=== PATIENT | male | born 2000 | race Caucasian/White ===

== ENCOUNTER 2022-02-25 18:31 | Inpatient (IN) ==
[2022-02-25] MEDS ORDERED: Lactated Ringers 1000 ml BAG 1,000 ML IV ONE ×2 (19:19→20:03)
[2022-02-25] MEDS ORDERED: Ondansetron 4 mg VIAL 2 MG/ML 2 ml VIAL IV ONE ×2 (19:25→21:09)
[2022-02-25 19:41] LABS: ABS Lymphocytes 1.3 10^3/ul (1.0-4.8); ABS Monocytes 1.1 10^3/ul (0-0.8); ABS Neutrophils 8.6 10^3/ul (1.5-7.7); Eosinophil % 0.2 %; Hematocrit 48 % (42-52); Hemoglobin 15.6 g/dL (14.0-18.0); Lymphocyte % 11.8 %; Mean Corpuscular HGB Conc 33 g/dL (31-36); Mean Corpuscular Hemoglobin 28 pg (27-31); Mean Corpuscular Volume 86 fL (80-94); Mean Platelet Volume 7.8 fL (7.4-10.4); Platelet Count 283 10^3/uL (150-450); Red Blood Count 5.55 10^6 /uL (4.18-5.48); Red Cell Distribution Width 14 % (10-15); White Blood Count 11.1 10^3/uL (3.5-10.8)
[2022-02-25] MEDS ORDERED: Pantoprazole VIAL 40 MG VIAL IV ONE (20:02)
[2022-02-25 20:19] LABS: ALT 23 U/L (7-52); Albumin/Globulin Ratio 1.8 (1-3); Alcohol, S < 13 mg/dL (<13); Alkaline Phosphatase 71 U/L (35-149); Blood Urea Nitrogen 7 mg/dL (6-24); CO2 Carbon Dioxide 19 mmol/L (22-32); Calcium 9.8 mg/dL (8.6-10.3); Chloride 101 mmol/L (101-111); Globulin 2.8 g/dL (2-4); Glucose 164 mg/dL (70-100); Salicylate < 2.50 mg/dL (<30); Sodium 139 mmol/L (135-145); Total Protein 7.8 g/dL (6.4-8.9); eGFR CKD-EPI 128.8 (>60)
[2022-02-25 20:22] LABS: Anion Gap 19 mmol/L (2-11)
[2022-02-25 20:49] LABS: Urine Appearance Clear; Urine Bilirubin Negative (Negative); Urine Blood Negative (Negative); Urine Color Yellow; Urine Glucose 1+(50 mg/dL) (Negative); Urine Ketones 1+ (Negative); Urine Nitrite Negative (Negative); Urine Protein 2+(100 mg/dL) (Negative); Urine Specific Gravity 1.019 (1.002-1.030); Urine Urobilinogen Negative (Negative)
[2022-02-25 20:57] LABS: Urine Bacteria Absent (Absent); Urine Red Blood Cell Trace(0-2/hpf) (Absent); Urine Squamous Epithelial Cell Present (Absent); Urine White Blood Cell Trace(0-5/hpf) (Absent)
[2022-02-25] MEDS ORDERED: Magnesium Sulfate 2 gm BAG 2 GM/50 ML BAG IVPB ONE (21:02)
[2022-02-25 21:03] LABS: Urine Benzodiazepine Screen None Detected (None Detect); Urine Cannabinoids Screen Presumptive Positive (None Detect); Urine Opiates Screen None Detected (None Detect)
[2022-02-25 21:06] LABS: Acetaminophen 215 mcg/mL
[2022-02-25 21:07] LABS: High Sensitivity Troponin 1 Hr 59 pg/mL (<20)
[2022-02-25 21:27] LABS: Magnesium 1.5 mg/dL (1.9-2.7); Phosphorus 2.6 mg/dL (2.5-5.0); Potassium Redraw 3.6 mmol/L (3.5-5.0)
[2022-02-25] MEDS ORDERED: D5W IV ONE ×2 (22:52→22:57)
[2022-02-25] MEDS ORDERED: ACETYLCYSTEINE IV ONE ×2 (22:52→22:57)
[2022-02-25] MEDS ORDERED: LORazepam 2 mg VIAL 1 ml IV PUSH ONE (23:29)
[2022-02-25] MEDS ORDERED: Lorazepam PYXIS KEY PRN (23:29)
[2022-02-26] MEDS ORDERED: Ondansetron 4 mg VIAL 2 MG/ML 2 ml VIAL IV ONE (00:23)
[2022-02-26] MEDS ORDERED: ACETYLCYSTEINE IV ONE ×2 (00:30→04:30)
[2022-02-26] MEDS ORDERED: D5W IV ONE ×2 (00:30→04:30)
[2022-02-26] MEDS ORDERED: LORazepam 2 mg VIAL 1 ml IV PUSH ONE (01:38)
[2022-02-26] MEDS ORDERED: Lorazepam PYXIS KEY PRN (01:38)
[2022-02-26] MEDS ORDERED: Magnesium Sulf 4 GM/100 ML IV 4,000 MG/100 ML BAG IVPB ONE (01:50)
[2022-02-26 03:29] LABS: Activated Partial Thrombo Time 28.7 seconds (26.0-38.0); INR 1.27 (0.89-1.11)
[2022-02-26 03:56] LABS: Albumin 4.8 g/dL (3.2-5.2); Albumin/Globulin Ratio 1.8 (1-3); Calcium 9.7 mg/dL (8.6-10.3); Globulin 2.7 g/dL (2-4); Magnesium 2.1 mg/dL (1.9-2.7); Potassium 3.8 mmol/L (3.5-5.0); Total Bilirubin 1.6 mg/dL (0.2-1.0); Total Protein 7.5 g/dL (6.4-8.9); eGFR CKD-EPI 129.8 (>60)
[2022-02-26 05:40] LABS: ABS Lymphocytes 0.9 10^3/ul (1.0-4.8); ABS Neutrophils 13.6 10^3/ul (1.5-7.7); Hematocrit 43 % (42-52); Hemoglobin 14.1 g/dL (14.0-18.0); Lymphocyte % 6.1 %; Mean Corpuscular HGB Conc 33 g/dL (31-36); Mean Corpuscular Hemoglobin 28 pg (27-31); Mean Corpuscular Volume 85 fL (80-94); Mean Platelet Volume 7.7 fL (7.4-10.4); Nucleated Red Blood Cells % 0.1; Platelet Count 263 10^3/uL (150-450); Red Blood Count 5.06 10^6 /uL (4.18-5.48); Red Cell Distribution Width 14 % (10-15); White Blood Count 15.6 10^3/uL (3.5-10.8)
[2022-02-26] MEDS ORDERED: Ondansetron 4 mg VIAL 2 MG/ML 2 ml VIAL IV PRN (10:54)
[2022-02-26] MEDS ORDERED: Prochlorperazine 5 mg/ml 2 ml VIAL (10 mg) IV PRN (10:56)
[2022-02-26] MEDS ORDERED: Scopolamine 1 mg/72hr PATCH TRANSDERM SCH (11:00)
[2022-02-26 13:12] LABS: Activated Partial Thrombo Time 29.8 seconds (26.0-38.0); INR 1.28 (0.89-1.11)
[2022-02-26 13:33] LABS: ALT 22 U/L (7-52); AST 39 U/L (13-39); Acetaminophen < 15 mcg/mL; Albumin 4.8 g/dL (3.2-5.2); Albumin/Globulin Ratio 1.9 (1-3); Alkaline Phosphatase 61 U/L (35-149); Globulin 2.5 g/dL (2-4); Indirect Bilirubin 1.7 mg/dL (0.3-1.0); Total Protein 7.3 g/dL (6.4-8.9)
[2022-02-26] MEDS ORDERED: Benzocaine/Menthol LOZ PO PRN (14:23)
[2022-02-26] MEDS ORDERED: Lactated Ringers 1000 ml BAG 1,000 ML IV SCH (15:00)
[2022-02-27 05:36] LABS: Hematocrit 43 % (42-52); Hemoglobin 14.3 g/dL (14.0-18.0); Mean Corpuscular HGB Conc 33 g/dL (31-36); Mean Corpuscular Hemoglobin 28 pg (27-31); Mean Corpuscular Volume 85 fL (80-94); Mean Platelet Volume 7.7 fL (7.4-10.4); Platelet Count 236 10^3/uL (150-450); Red Blood Count 5.05 10^6 /uL (4.18-5.48); Red Cell Distribution Width 14 % (10-15); White Blood Count 12.5 10^3/uL (3.5-10.8)
[2022-02-27 05:45] LABS: Activated Partial Thrombo Time 30.6 seconds (26.0-38.0); INR 1.35 (0.89-1.11)
[2022-02-27 05:58] LABS: Albumin 4.2 g/dL (3.2-5.2); Albumin/Globulin Ratio 1.8 (1-3); Calcium 9.7 mg/dL (8.6-10.3); Direct Bilirubin 0.1 mg/dL (0.03-0.18); Globulin 2.3 g/dL (2-4); Indirect Bilirubin 1.7 mg/dL (0.3-1.0); Magnesium 2.1 mg/dL (1.9-2.7); Potassium 3.9 mmol/L (3.5-5.0); Total Bilirubin 1.8 mg/dL (0.2-1.0); Total Protein 6.5 g/dL (6.4-8.9); eGFR CKD-EPI 128.4 (>60)
[2022-02-27] MEDS ORDERED: Influenza vaccine *QUAD* *2022-23* 0.5 ML SYRINGE IM ONE (09:00)
[2022-02-27 12:08] VITALS: BP 130/71
== END 2022-02-27 11:37 | disposition home or self-care (01) | DRG 812 ==
LOC: EDSEX → ED 18:31 → EDHOLD 02-26 00:28 → ICU 02-26 10:01
PROVIDERS: ADMIT Internal Medicine; ATTEND Internal Medicine